=== PATIENT | female | born 1985 | race Caucasian/White ===

== ENCOUNTER 2021-08-20 16:18 | Emergency (ER) | payer SELFPAY ==
--- NOTE | 2021-08-20 16:22 | XRR_ITS ---
PROCEDURE INFORMATION: Exam: XR Right Ankle Exam date and time: 08/20/2021 4:22 PM Age: 36 years old Clinical indication: Injury or trauma; Fall; Blunt trauma; Right; Injury details: History--pt fell 6 days ago pain RT ankle; Additional info: Trauma/pain TECHNIQUE: Imaging protocol: XR Right ankle. Views: 3 or more views. COMPARISON: No relevant prior studies available. FINDINGS: Bones/joints: Two small avulsion fracture fragments along the tip of the medial malleolus. Mildly displaced oblique fracture in the distal diaphysis of the right fibula. The ankle mortise appears intact. Soft tissues: Lateral soft tissue swelling. Obesity. XR/XR ankle RT min 3V* [id number] IMPRESSION: 1. Springer B bimalleolar ankle fracture.
--- NOTE | 2021-08-20 16:38 | XRR_ITS ---
PROCEDURE INFORMATION: Exam: XR Right Foot Exam date and time: 08/20/2021 4:38 PM Age: 36 years old Clinical indication: Injury or trauma; Fall; Blunt trauma; Right; Injury details: History--pt fell 6 days ago pain RT ankle, foot; Additional info: Trauma/pain TECHNIQUE: Imaging protocol: XR Right foot. Views: 3 or more views. COMPARISON: CR XR ankle RT min 3V* [id number] 08/20/2021 4:34 PM FINDINGS: Bones/joints: Well corticated bone densities along the lateral aspect of the medial cuneiform. Mild widening between the bases of the 1st and 2nd metatarsals. Degenerative changes of the tarsometatarsal joints. The other bones appear intact and in normal alignment. Suboptimal positioning with overlapping of the proximal metatarsals. Soft tissues: Normal. XR/XR foot RT min 3V* [id number] IMPRESSION: 1. Bone densities along the medial cuneiform with slight widening between the bases of the 1st and 2nd metatarsals. This may be chronic and related to prior trauma. An acute Lisfranc injury cannot be entirely excluded. 2. Suboptimal positioning makes evaluation of the proximal metatarsals difficult. Further evaluation with CT imaging is suggested.
--- NOTE | 2021-08-20 16:38 | W.ED.LOWEXIN ---
HPI - Extremity Injury (Lower) General: Chief Complaint: Extremity Injury, Lower Stated Complaint: FALL, RIGHT ANKLE INJURY Time Seen by Provider: 08/20/21 16:38 Source: patient Mode of arrival: wheelchair Limitations: no limitations History of Present Illness: Patient is a 36-year-old female presents to ED today with a complaint of right foot and ankle injury that she sustained 6 days ago after she was twisting it when she was taking the trash out. Patient believes she slipped on ice. She has no other injuries or complaints at this time. Patient states she has been hobbling on the extremity since injury thinking it would improve but it has unfortunately continued to worsen in discomfort. complaint: ankle injury and foot injury Place: home Severity: moderate Relieving factors: immobilization Exacerbating factors: weight bearing, movement and palpation Context: other (twisted) Associated symptoms: Reports no associated symptoms Other symptoms: none Review of Systems Musc: Reports: extremity pain (R foot) and joint pain (R ankle) [facility] ED PFSH: Social History Smoking and tobacco status: former smoker Physical Exam Const: COMMON NORMALS: no acute distress, patient oriented x3, no limitations and alert NUTRITIONAL APPEARANCE: obese morbidly obese ORIENTATION/CONSCIOUSNESS: Yes awake, Yes oriented to person, Yes oriented to place and Yes oriented to time Extremity: COMMON NORMALS: capillary refill normal GENERAL: Yes normal exam except as noted RIGHT LOWER EXTREMITY: Yes foot & digits and Yes foot & digits OTHER: pt has pain throughout ankle joint and dorsal foot; DP/PT pulses normal with normal cap refill and sensation; no bony deformity noted; swelling difficulty to appreciate secondary to morbid obesity Neuro: COMMON NORMALS: patient oriented x3, moves all extremities, no focal motor deficits and no sensory deficits noted SENSORIUM/ORIENTATION: Yes alert, Yes oriented to person, Yes oriented to place and Yes oriented to time Skin: COMMON NORMALS: no rashes or lesions noted GENERAL SKIN EXAM: no rashes or lesions noted TRAUMA: no lacerations or abrasions Course Vital Signs: Vital signs: Vital Signs Temperature 97.6 F 08/20/21 16:56 Pulse Rate 89 08/20/21 17:01 Respiratory Rate 18 08/20/21 17:01 Blood Pressure 136/86 08/20/21 17:01 Pulse Oximetry 98 08/20/21 17:01 MDM - Extremity Injury (Lower) Medical Decision Making Will splint with posterior leg/stir up, crutches, NWB instructions, ice/elevation and have patient follow up with orthopedics. Lab Data Radiology Impressions Ankle X-Ray 08/20/21 16:22 IMPRESSION: 1. Springer B bimalleolar ankle fracture. Foot X-Ray 08/20/21 16:38 IMPRESSION: 1. Bone densities along the medial cuneiform with slight widening between the bases of the 1st and 2nd metatarsals. This may be chronic and related to prior trauma. An acute Lisfranc injury cannot be entirely excluded. 2. Suboptimal positioning makes evaluation of the proximal metatarsals difficult. Further evaluation with CT imaging is suggested. Imaging Data XR R foot/ankle: My impression: appears to have a non-displaced oblique fx of distal fibula, small avulsion/fragment off her medial malleolus, and a small jayla that could represent avulsion fracture from her talus; no dislocation Discharge Plan Discharge Patient Disposition: Home Clinical Impression: Fracture of distal end of fibula Qualifiers: Encounter type: initial encounter Fracture type: closed Fracture morphology: unspecified fracture morphology Laterality: right Qualified Code(s): S82.831A - Other fracture of upper and lower end of right fibula, initial encounter for closed fracture Closed fracture of medial malleolus Qualifiers: Encounter type: initial encounter Fracture alignment: nondisplaced Laterality: right Qualified Code(s): S82.54XA - Nondisplaced fracture of medial malleolus of right tibia, initial encounter for closed fracture Condition: Stable Prescriptions: New hydrocodone-acetaminophen 5-325 mg tablet 1 tab PO Q6H PRN (Reason: pain) Qty: 15 0RF No Action famciclovir 500 mg tablet 500 mg PO Q8H 10 Days Qty: 30 0RF Discharge Orders: Discharge ED (Routine); Ordered 08/20/21 Ordered By: Meche Hays Patient Instructions: Opioid Safety Activity Restrictions/Additional Instructions: [email or web address] is committed to fighting the nationwide opiate epidemic. We are providing ALL patients with information regarding opiate safety. If you received opiate pain medication during your stay or if you received a prescription for opiate pain medication-please review this handout. If not, you may disregard. Thank you. As discussed case management should contact you shortly to set you up with your follow-up orthopedic appointment. As we discussed nonweightbearing until told otherwise by orthopedics. You may also elevate and ice the extremity to help with swelling. Coding Level of Care Code ED Technical Support Representative for Chg Fwd Exam Expanded Problem Focused
[2021-08-20 16:56] VITALS: BP 139/88; PULSE 89; RESP 18; TEMP 36.4; O2SAT 98; BMI 62.1
[2021-08-20 17:01] VITALS: BP 136/86; PULSE 89; RESP 18; O2SAT 98
--- NOTE | 2021-08-21 09:28 | DCPLANNER ---
Addendum entered by Barbar Jones 08/22/21 14:58: Patient had a follow up appointment scheduled with ortho - patient did attend appointment. Original Note: sales engineering manager had message to schedule a follow up appointment for patient with ortho. sales engineering manager called the ortho clinic, spoke with Miladis, gave clinic patients information. sales engineering manager was told that patients information would be printed and reviewed. Clinic will call patient with appointment information.
== END 2021-08-20 17:37 | disposition home or self-care (01) ==
PROVIDERS: Emergency Provider Physician Assistant
DX: S82.831A Other fracture of upper and lower end of right fibula, initial encounter for closed fracture (principal); S82.54XA Nondisplaced fracture of medial malleolus of right tibia, initial encounter for closed fracture; Z87.891 Personal history of nicotine dependence; X50.1XXA Overexertion from prolonged static or awkward postures, initial encounter
CPT/HCPCS: 29515; 73610; 73630; 99283; E0114

== ENCOUNTER → 2021-08-25 14:32 | Outpatient (BNVA) | payer SELFPAY | PROVIDERS: Visit Provider Podiatrist Foot & Ankle Surgery | DX: Z01.818 Encounter for other preprocedural examination (principal); Z20.822 Contact with and (suspected) exposure to COVID-19 | CPT/HCPCS: 87635 ==

== ENCOUNTER 2021-08-28 05:52 | Day surgery (SDC) | payer MEDICAID, SELFPAY ==
[2021-08-27 10:34] VITALS: BMI 62.1
[2021-08-28] VITALS (8 sets, daily range): BP systolic 112–153; BP diastolic 76–97; PULSE 85–102; RESP 13–18; TEMP 36.2–36.6; O2SAT 95–100
--- NOTE | 2021-08-28 | SCC_ITS ---
Procedure done: Open reduction internal fixation right bimalleolar ankle fracture Open reduction internal fixation right tarsometatarsal joint CPT codes 16031 and 49918 39 seconds of fluoroscopic guidance, for a cumulative dose of 0.8 mGy, was provided to Dr. Álvarez by the radiology department. C-arm images of the RIGTH ankle were saved for the patient's permanent record. [facility]
[2021-08-28 06:13] LABS: OR HCG Qualitative Urine Negative (Negative)
[2021-08-28] MEDS: sodium chloride 0.9% 1,000 ML 30 ML IV (06:25)
[2021-08-28] MEDS: scopolamine 1.5 Patch 1 PATCH TRANSDERMA (06:44)
[2021-08-28] MEDS: fentaNYL 50 mcg/mL INJ 2mL IVP (06:49)
--- NOTE | 2021-08-28 06:49 | ANES.PREANE2 ---
Pre-Anesthetic Assessment Height/Weight: Height 1.68 m Weight 174.633 kg Preop Diagnosis: Right bimalleolar ankle fracture and right Lisfranc fracture Operation Date: 08/28/21 07:00 Proposed Procedures p ORIF Bimalleolar Ankle [id number]/S92.243(Right) - Antonio Álvarez DPM s ORIF tarsometatarsal fracture(Right) - Antonio Álvarez DPM Was Beta Haylee taken within 24 hours: N/A Was Clonidine taken within 24 hours: N/A Last intake: Intake Last Liquid Date 08/27/21 Last Liquid Time 23:30 Last Solid Date 08/27/21 Last Solid Time 23:30 Social No alcohol and No tobacco Exam alert, oriented x 3, clear to auscultation bilaterally and regular rate & rhythm Airway Submandibular: within normal limits Cervical ROM: within normal limits Mallampati: Class I Dentition: full History/ROS No significant history except as noted and No significant complaints Pulmonary None reported Unable to go up stairs d/t pain CV/HEM None reported None reported Hepatic None reported GI None reported Metabolic None reported Musc/skel None reported Anesthetic Plan ASA status: 3 (36 year old with super morbid obesity) Anesthesia: Anesthesia Evaluation, Eval. for regional block, General and Regional (specify below) (Popliteal block for post op pain control requested by shorty) Other: We discussed risk and benefits of general anesthesia including PONV, sore throat (sometimes severe), corneal abrasion, positioning and peripheral nerve injuries, life threatening allergic reaction, post operative ICU admission requiring prolonged intubation, stroke, heart attack, , and rare incidences of recall. Patient consents to proceed with general anesthesia. We discussed risk and benefits of nerve block for post op pain control including management of pain and titration of pain medications as signs/symptoms of nerve block wearing off begin to appear and/or prior bed. We discussed risk of failed nerve block, vascular injury or other vital structure injury, abscess/infection, LAST, nerve injury?. Plan popliteal block for post op pain control, general at patient's request Risk of > 500 ml blood loss (7ml/kg in children): No Medications/Allergies Home Medications Medication Instructions Recorded Confirmed Last Taken Type aspirin 81 mg chewable tablet 81 mg PO DAILY 60 Days #60 tab 08/28/21 Unknown Rx oxycodone-acetaminophen 10 mg-325 1 tab PO Q6H PRN 7 Days #28 tab 08/28/21 Unknown Rx mg tablet (Percocet) Allergies Allergy/AdvReac Type Severity Reaction Status Date / Time Iodinated Contrast Media Allergy Mild Rash Verified 08/28/21 06:20 shellfish derived Allergy Mild Rash Verified 08/28/21 06:20 PFSH Anesthesia Social History Smoking and tobacco status: former smoker Female Reproductive History Date of last menstrual period: 08/27/21 Data Anesthesia Cardiac Studies: No Data to Display
--- NOTE | 2021-08-28 07:00 | ANES.PROC ---
Anesthesia Procedures Procedure/Date: 08/28/21 Nerve Block ^: Nerve Block 1: Main Anesthesia: general anesthesia Time Out Performed: Yes Consent: requested by attending/covering physician, from patient, risks and benefits reviewed and patient agrees to proceed Nerve block location: popliteal (R) Anesthesia monitors applied: pulse oximetry, EKG, BP cuff and oxygen Anesthetic Used: ropivicaine 0.5% (30) and with decadron (4 mg) Ultrasound used to: recognize landmarks Interscalene/Femoral BLK: 4 stimuplex 21 g needle used for position and inplane approach, visualize local anesthetic spread and no vascular puncture identified Injection: neg aspiration of heme and paresthesia +/- Patient Tolerated Procedure: well Complications: pain with procedure (local Pain during entry and advancement of needle, no pain with injections)
--- NOTE | 2021-08-28 07:05 | W.PM.OPSUD ---
Surgery/Procedure H&P Update DATE OF PROCEDURE: August 28, 2021 DATE H&P PERFORMED: 08/22/21 CHANGES TO PREVIOUS DOCUMENTATION: None PREOP DIAGNOSIS: Right bimalleolar ankle fracture and right Lisfranc fracture PLANNED PROCEDURE: Operation Date: 08/28/21 07:00 Proposed Procedures p ORIF Bimalleolar Ankle [id number]/S92.243(Right) - Antonio Álvarez DPM s ORIF tarsometatarsal fracture(Right) - Antonio Álvarez DPM
[2021-08-28] MEDS: ceFAZolin 3,000 MG in sodium chloride 0.9% (100 ml) 100 ML 200 MG IV (07:07)
[2021-08-28] MEDS: midazolam 1 mg/mL INJ 2 mL 2 MG IVP (07:09)
--- NOTE | 2021-08-28 08:33 | XR_ITS ---
WS: [id number] RIGHT ANKLE: 3 VIEW(S) TECHNIQUE: AP, oblique(s) and lateral. HISTORY: Postop ORIF COMPARISON: 08/20/2019 Short plate and screws stabilizing the distal fibular fracture. Fracture in good position alignment. Overlying row of john noted. Ankle mortise is intact. Well-corticated osseous densities distal to the medial malleolus. Additional screw has been placed in the midfoot. Screw may extend across the Lisfranc joint. Addition al imaging is necessary to clarify positioning. No soft tissue abnormality. XR/XR ankle RT min 3V* [id number] IMPRESSION: 1. Status post ORIF distal fibular fracture now in good position alignment. 2. No widening of the ankle mortise.
--- NOTE | 2021-08-28 08:35 | PM.OP ---
Operative Report Date of procedure: August 28, 2021 Pre-op diagnosis: Right bimalleolar ankle fracture equivalent and right Lisfranc fracture, right medial cuneiform fracture. Post-op diagnosis: Same Post-op findings: Improved in anatomic alignment of the right ankle distal fibula, ankle mortise is congruent and reduced the first interspace diastases to the right foot. Procedure done: Open reduction internal fixation right bimalleolar ankle fracture Open reduction internal fixation right tarsometatarsal joint CPT codes 35169 and 73533 Implants: Jenkins one third tubular plate 7 hole and 3.5 mm locking screws, Jenkins 2.7 mm interfrag screw and Peng headed 4.0 mm partially-threaded cannulated screw with washer. 2-0 Vicryl, 3-0 Vicryl, skin john and 4-0 nylon. Specimens removed/disposition: None Pathology: None Surgeon: Antonio Álvarez D.P.M. Cell Tuber Machine: Niko Meléndez Estimated blood loss: 5 58 IV fluids: None Urine output: 0 Complications: None Findings: Proved anatomic alignment of right ankle and right Lisfranc tarsometatarsal joint. Brief History: Sustained a right bimalleolar ankle equivalent and right Lisfranc fracture dislocation slipped on ice check in the mail date of injury approximately 08/14/2021. Recommended ORIF. Risks include pain, bleeding, numbness, infection, hardware failure, hardware rotation, delayed union, malunion, nonunion, chronic numbness, chronic swelling, instability at the tarsometatarsal joint need for potential arthrodesis of the right tarsometatarsal joints down the road. Highly likelihood of posttraumatic arthritis of the right foot and right ankle. Also risk for deep vein thrombosis, heart attack, stroke and . Patient n.p.o. since midnight. Covid screening negative. Informed consent signed I initialed her right foot and ankle. No guarantees written, expressed or implied. Patient wishes to proceed. Her life partner is also present. Procedure: Under mild sedation the patient was brought to the operating room and remained on the gurney in supine position. A timeout was performed. Anesthesia was then administered by the anesthesia service. Popliteal block performed preoperatively per anesthesia greatly appreciated. Well-padded pneumatic tourniquet applied to the right high calf. Right lower extremity was then scrubbed, prepped and draped utilizing normal aseptic technique. Right foot and ankle were exanguinated with an Esmarch bandage and the tourniquet inflated to 250 mmHg. Attention was directed to the right lateral ankle where the lateral malleolus was palpated directly over the lateral malleolus a linear longitudinal incision was made with #15 blade through skin with blunt and sharp dissection carried down through subcutaneous tissue to the layer of periosteum with care taken to retract and preserve neurovascular and tendinous structures. All bleeders were ligated and cauterized as necessary. Periosteal incision was made, fracture was identified, curettaged and flushed with saline solution followed by anatomic reduction and temporarily stabilized utilizing [id number] reduction forceps, interfrag screw 2.7 mm utilizing standard AO technique with excellent bony apposition and compression noted followed by one third tubular plate 7 hole 3.5 mm locking screws in various length not violating the ankle mortise this was confirmed with intraoperative fluoroscopy with excellent bony apposition and compression and ankle mortise congruent. The incision was flushed with copious amounts of sterile skin solution. Syndesmosis was tested utilizing cotton hook test and noted to be intact. Skin incision was then closed in a layered fashion with 2-0 Vicryl, 3-0 Vicryl and skin john. Attention was then directed to the dorsal forefoot where all 3 planes were visualized and planned out for the trajectory of a homerun screw through the Lisfranc injury there is a fracture at the medial cuneiform distal lateral aspect and diastases at the first intermetatarsal space. Utilize things standard AO technique a Peng headed 4.0 mm screw which was cannulated and partially-threaded was run in a homerun fashion with excellent bony apposition and compression noted in anatomic reduction of the diastases and fixation of the fracture fragment. This was excellent in all 3 planes. Incision was then flushed with sterile saline solution and closed with 4-0 nylon. Incisions were then dressed with Adaptic, sterile 4 x 4, Kerlix, Jason wrap and a cam boot was applied. Tourniquet was deflated and a prompt hyperemic response was noted to the distal digits of the right foot. Patient tolerated the procedure and anesthesia well and was transferred to the PACU with vital signs stable and vascular status intact. Following a period of postoperative monitoring she will be discharged home was given at home instructions and follow-up. She was prescribed Percocet 10/325 to be taken judiciously as needed for pain every 6 hours. She is to remain strict nonweightbearing on the right foot at all times and elevate her right foot while resting. She may accomplish nonweightbearing status utilizing the means of her choice whether wheelchair or crutches. I advised an 81 mg aspirin once daily beginning tomorrow August 29, 2021 to potentially help reduce the risk of deep vein thrombosis. Patient will follow up in podiatry clinic Wednesday next week September 05, 2021 for her first dressing change in postoperative visit. She was provided my cell phone number and will contact with any postoperative questions or concerns.
[2021-08-28] MEDS: oxyCODONE-APAP 10-325 mg Tablet 1 TAB PO (09:15)
--- NOTE | 2021-08-28 10:00 | ANE.PACU2 ---
Inpatient post-anesthesia follow up: Airway intact: Yes Vital signs: Temperature 97.9 F Pulse Rate 85 Respiratory Rate 16 Blood Pressure 113/81 Pulse Oximetry 95 Oxygen Delivery Me thod Room Air Oxygen Flow Rate 10 Fraction of Inspir ed Oxygen Hydration adequate: Yes Nausea and vomiting: No Pain level: 3 Pain level: Medial foot pain Mental status: Baseline
== END 2021-08-28 10:05 | disposition home or self-care (01) ==
PROVIDERS: Anesthesiology; Visit Provider Podiatrist Foot & Ankle Surgery
PROC: (CPT 27814; principal; 2021-08-28 07:00)
PROC: (CPT 28485; 2021-08-28 07:00)
DX: S82.841A Displaced bimalleolar fracture of right lower leg, initial encounter for closed fracture (principal); S92.241A Displaced fracture of medial cuneiform of right foot, initial encounter for closed fracture; X58.XXXA Exposure to other specified factors, initial encounter; E66.01 Morbid (severe) obesity due to excess calories; Z68.44 Body mass index [BMI] 60.0-69.9, adult; Z79.82 Long term (current) use of aspirin; Z87.891 Personal history of nicotine dependence
CPT/HCPCS: 27814; 28615; 73610; 76000; 81025; 84703; 96367; 96374; C1713; J0330; J0690; J1100; J2250; J2405; J2704; J2795; J3010; J3490; J7030

== ENCOUNTER → 2021-09-02 15:44 | Outpatient (BNVA) | payer SELFPAY | PROVIDERS: Visit Provider Podiatrist Foot & Ankle Surgery | DX: Z98.890 Other specified postprocedural states (principal) | CPT/HCPCS: 73610; 73630 ==

== ENCOUNTER → 2021-09-08 13:09 | Outpatient (BNVA) | payer MEDICAID, SELFPAY | PROVIDERS: Visit Provider Podiatrist Foot & Ankle Surgery | DX: Z48.89 Encounter for other specified surgical aftercare (principal); Z98.890 Other specified postprocedural states; R60.0 Localized edema | CPT/HCPCS: 73610; 73630 ==

== ENCOUNTER → 2021-09-19 13:16 | Outpatient (BNVA) | payer MEDICAID, SELFPAY | PROVIDERS: Visit Provider Podiatrist Foot & Ankle Surgery | DX: S82.841D Displaced bimalleolar fracture of right lower leg, subsequent encounter for closed fracture with routine healing (principal); S92.241D Displaced fracture of medial cuneiform of right foot, subsequent encounter for fracture with routine healing; X58.XXXD Exposure to other specified factors, subsequent encounter; Z98.890 Other specified postprocedural states | CPT/HCPCS: 73610; 73630 ==

== ENCOUNTER → 2021-10-09 14:42 | Outpatient (BNVA) | payer MEDICAID, SELFPAY | PROVIDERS: Visit Provider Podiatrist Foot & Ankle Surgery | DX: Z48.89 Encounter for other specified surgical aftercare (principal); Z98.890 Other specified postprocedural states | CPT/HCPCS: 73610; 73630 ==

== ENCOUNTER 2022-02-13 18:38 | Emergency (ER) | payer MEDICAID, SELFPAY ==
[2022-02-13 19:12] VITALS: BP 128/86; PULSE 98; RESP 18; TEMP 36.7; O2SAT 98; BMI 63.2
[2022-02-13 20:38] LABS: Basophils # 0.1 10^3/uL (0.0-0.1); Basophils % 0.7 %; Eosinophils # 0.3 10^3/uL (0.0-0.8); Eosinophils % 3.9 %; Hematocrit 49.4 % (37.0-47.0); Lymphocytes # 3.4 10^3/uL (0.8-4.8); Lymphocytes % 38.6 %; Mean Corpuscular HGB Conc 30.4 g/dL (30.0-36.0); Mean Corpuscular Hemoglobin 29.3 pg (28.0-34.0); Mean Corpuscular Volume 96.5 fl (81-99); Mean Platelet Volume 11.3 fL (7.4-10.4); Monocytes # 0.4 10^3/uL (0.2-0.9); Monocytes % 4.9 %; Neutrophils # 4.49 10^3/uL (1.8-7.7); Neutrophils % 51.6 %; Nucleated Red Blood Cells % 0 %; Platelet Count 337 10^3/cmm (130-400); Red Blood Count 5.12 10^6/uL (4.1-5.3); Red Cell Distribution Width 12.6 % (12.1-15.1); White Blood Count 8.7 10^3/uL (4.0-10.0)
[2022-02-13 20:50] LABS: HCG, Serum Qual Negative (Negative)
[2022-02-13 21:04] LABS: Alanine Aminotransferase 23 U/L (0-33); Albumin Level 4.1 g/dL (3.5-5.2); Alkaline Phosphatase 93 IU/L (35-105); Anion Gap 16.8 (5-19); Aspartate Amino Transferase 19 U/L (0-32); Blood Urea Nitrogen 9 mg/dL (6-20); Calcium 9.2 mg/dL (8.5-10.5); Carbon Dioxide 24 mmol/L (22-29); Chloride 103 mmol/L (98-107); Globulin 3.1 g/dL (1.3-4.6); Glomerular Filtration Rate 81.6 mL/min (90-130); Glucose 90 mg/dL (65-115); Lipase 31 U/L (13-60); Osmolality Calculated 288 mOsm/kg (285-295); Potassium 3.8 mmol/L (3.5-5.1); Sodium 140 mmol/L (136-145); Total Bilirubin 0.4 mg/dL (0.15-1.2); Total Protein 7.2 g/dL (6.6-8.7)
--- NOTE | 2022-02-13 21:40 | CTR_ITS ---
PROCEDURE INFORMATION: Exam: CT Abdomen And Pelvis Without Contrast Exam date and time: 02/13/2022 9:48 PM Age: 36 years old Clinical indication: Abdominal pain; Generalized; Prior surgery; Surgery date: 6+ months; Surgery type: Gastric sleeve; Patient HX: C/O abd pain, n/v/d TECHNIQUE: Imaging protocol: Computed tomography of the abdomen and pelvis without contrast. Radiation optimization: All CT scans at this facility use at least one of these dose optimization techniques: automated exposure control; mA and/or kV adjustment per patient size (includes targeted exams where dose is matched to clinical indication); or iterative reconstruction. COMPARISON: No relevant prior studies available. RADIATION DOSE METRICS: Total DLP (mGy-cm): 1995.33 FINDINGS: Lungs: The lung bases are clear. Liver: Unremarkable. Gallbladder and bile ducts: The gallbladder appears mildly distended, transverse diameter up to 4.2 cm. Suspect a faintly calcified 18 mm gallstone in the gallbladder neck. Ultrasound would be more specific/sensitive for detecting gallstones, if clinically needed. No definite pericholecystic fluid or inflammatory changes at this time. No biliary tree dilation. Pancreas: Unremarkable. Spleen: Unremarkable. Adrenal glands: Unremarkable. Kidneys and ureters: No hydronephrosis of either kidney. No visible renal or ureteral calculus. No perinephric fluid. Stomach and bowel: Evidence for prior gastric sleeve surgery. No significant bowel distention. There are no CT findings to strongly suggest diverticulitis or colitis. Appendix: The appendix is visualized and appears normal. Intraperitoneal space: No free intraperitoneal air, or ascites. Vasculature: No evidence for abdominal aortic aneurysm. Lymph nodes: No retroperitoneal adenopathy. Urinary bladder: Unremarkable as visualized. Reproductive: No definite abnormal ovarian/adnexal cyst or mass by CT. Bones/joints: No significant acute finding. Soft tissues: No significant acute finding. CT/CT abdomen pelvis wo con [id number] IMPRESSION: 1. Probable 18 mm faintly calcified gallstone in the gallbladder neck. Mild gallbladder distention. See additional details above. 2. No free air or bowel distention. No evidence for bowel obstruction. 3. Normal appendix. 4. No hydronephrosis of either kidney. No visible renal or ureteral calculus. 5. Other findings discussed above.
--- NOTE | 2022-02-13 22:09 | W.ED.GENADLT ---
HPI - General Adult General: Chief complaint: Abdominal Pain Stated complaint: ABD Pain Time Seen by Provider: 02/13/22 21:16 History of Present Illness: Patient is a 36-year-old female with history of gastric sleeve, obesity, and renal colic presenting to the emergency room with 2 days of worsening right upper quadrant David pain radiating to the left upper quadrant. Patient tells me that she thinks that she has biliary colic. Patient says that since 2 days ago, patient has had intermittent constant upper abdominal pain rating from right to left. Patient denies any nausea/vomiting fever/chills, chest pain, shortness of breath, palpitation lightheadedness. Patient denies any additional swelling in the legs, diarrhea melena or hematochezia. Patient has no complaints. Patient has a history of renal colic but reports that symptoms are not consistent. Patient denies any hematuria. Patient denies any new vaginal discharge. No cough, runny nose, sore throat fever or chill. Onset: 2 days ago Duration:2 days Location:home Severity:moderate Associated symptoms: Deny chest pain, dyspnea, nausea, rash, palpitations or vomiting Review of Systems Const: Denies: fever(s) or chills Eyes: Denies: change in vision ENMT: Denies: mouth pain Card: Denies: chest pain or palpitations Resp: Denies: dyspnea or non-productive cough GI: Reports: abdominal pain; Denies: nausea, vomiting or diarrhea : Denies: dysuria Musc: Denies: extremity pain Skin/Breast: Denies: rash or new lesions Neuro: Denies: weakness in extremities Psych: Reports: other (Normal mood) Jeancarlos/Lymph: Denies: easy bruising PFSH ED PFSH: Medical History (Updated 02/13/22 @ 23:41 by Vini Anaya MD) Morbid obesity Renal colic Surgical History (Updated 02/13/22 @ 22:13 by Vini Anaya MD) H/O gastric sleeve Social History Smoking and tobacco status: never smoked Female Reproductive History: Date of last menstrual period: 01/20/22 Physical Exam Const: COMMON NORMALS: alert HENMT: COMMON NORMALS: atraumatic HEAD & SCALP: atraumatic MOUTH: moist mucous membranes not abnormal Eye: COMMON NORMALS: EOMs intact bilaterally and conjunctivae normal CONJUNCTIVA: Yes conjunctivae normal Neck/C-Spine: COMMON NORMALS: full ROM and supple Resp: COMMON NORMALS: normal respiratory effort and clear to auscultation bilaterally AUSCULTATION: clear to auscultation bilaterally Cardio: COMMON NORMALS: regular rate RATE: regular rate GI: COMMON NORMALS: Soft to palpation PALPATION: Yes Soft to palpation OTHER: +mild mid-epigastric focal TTP. NO guarding rebound, guarding, rigidity. No CVA tenderness to percussion. Neg Castillo/Neg McBurney's point tenderness, no suprabupic tenderness to palpation. Extremity: COMMON NORMALS: full ROM Neuro: SENSORIUM/ORIENTATION: Yes alert MOTOR EXAM: No Abnormal motor strength present and Other motor observations present (no focal motor deficits) Psych: COMMON NORMALS: speech normal SPEECH: Yes normal speech MOOD & AFFECT: Yes euthymic mood Course Vital Signs: Vital signs: Vital Signs Temperature 98.0 F 02/13/22 19:12 Pulse Rate 100 02/13/22 23:16 Respiratory Rate 22 H 02/13/22 23:41 Blood Pressure 136/81 02/13/22 23:16 Pulse Oximetry 100 02/13/22 23:16 MDM - General Adult Medical Decision Making 36-year-old female history renal colic, gastric sleeve, morbid obesity presenting to emergency room with concerns of abdominal pain x2 days. On exam, patient is afebrile hemodynamic stable, patient has mild midepigastric tenderness palpation. No flank tenderness to palpation no for CVA tenderness. No guarding no rebound tenderness. White count of 8.5. Creatinine was normal. UA is positive for UTI. Patient received ceftriaxone in the ER. CT abdomen pelvis showed gallstone in the gallbladder neck. There is no signs of formation of the gallbladder on CT scan. Patient is afebrile with no white count and pain improving, suspect this is biliary colic. AST/ALT and T bili not elevated today. Do not suspect any other pathology include choledocholithiasis worsening cholangitis. I discussed case with Dr. Urbina who will see patient in clinic next week. I have given patient follow up with our returned case inspector to be seen by Dr. Urbina for outpatient evaluation of bilary colic. Patient aware of a call from our returned case inspector to schedule for appointment(s) and verbalizes understanding of the importance of following up. Rx cefdinir for UTI/early pyelonephritis and probiotics PRN, tylenol #3 PRN pain Disposition: Discharge. Patient counseled regarding diagnostic impression, treatment plan. Patient given ED strict return precautions to return for continuation, worsening, or development of new symptoms. Instructed to f/u w/ Dr. Urbina regarding symptoms today. Patient verbalized understanding. Patient is given strict return precaution for any signs of biliary infection, fever/chills, nausea/chronic and worsening pain, or any new concerning complaints. Lab Data : 02/13/22 20:30 02/13/22 20:30 Radiology Impressions Abdomen/Pelvis CT 02/13/22 21:40 IMPRESSION: 1. Probable 18 mm faintly calcified gallstone in the gallbladder neck. Mild gallbladder distention. See additional details above. 2. No free air or bowel distention. No evidence for bowel obstruction. 3. Normal appendix. 4. No hydronephrosis of either kidney. No visible renal or ureteral calculus. 5. Other findings discussed above. Laboratory Results WBC 8.7 10^3/uL (4.0-10.0) 02/13/22 20:30 RBC 5.12 10^6/uL (4.1-5.3) 02/13/22 20:30 Hgb 15.0 g/dL (11.5-15.3) 02/13/22 20:30 Hct 49.4 % (37.0-47.0) H 02/13/22 20:30 MCV 96.5 fl (81-99) 02/13/22 20: MCH 29.3 pg (28.0-34.0) 02/13/22 20: MCHC 30.4 g/dL (30.0-36.0) 02/13/22 20: RDW 12.6 % (12.1-15.1) 02/13/22 20: Plt Count 337 10^3/cmm (130-400) 02/13/22 20: MPV 11.3 fL (7.4-10.4) H 02/13/22 20:30 Neut % (Auto) 51.6 % 02/13/22 20: Lymph % (Auto) 38.6 % 02/13/22 20:30 [place] % (Auto) 4.9 % 02/13/22 20:30 Eos % (Auto) 3.9 % 02/13/22 20:30 Baso % (Auto) 0.7 % 02/13/22 20:30 Neut # (Auto) 4.49 10^3/uL (1.8-7.7) 02/13/22 20:30 Lymph # (Auto) 3.4 10^3/uL (0.8-4.8) 02/13/22 20:30 [place] # (Auto) 0.4 10^3/uL (0.2-0.9) 02/13/22 20:30 Eos # (Auto) 0.3 10^3/uL (0.0-0.8) 02/13/22 20: Baso # (Auto) 0.1 10^3/uL (0.0-0.1) 02/13/22 20:30 Nucleated RBC % (auto) 0 % 02/13/22 20: Nucleated RBCs # 0.0 /100WBC 02/13/22 20:30 Sodium 140 mmol/L (136-145) 02/13/22 20: Potassium 3.8 mmol/L (3.5-5.1) 02/13/22 20: Chloride 103 mmol/L (98-107) 02/13/22 20: Carbon Dioxide 24 mmol/L (22-29) 02/13/22 20:30 Anion Gap 16.8 (5-19) 02/13/22 20:30 BUN 9 mg/dL (6-20) 02/13/22 20: Creatinine 0.8 mg/dL (0.5-0.9) 02/13/22 20:30 GFR Calculation 81.6 mL/min (90-130) L 02/13/22 20: Glucose 90 mg/dL (65-115) 02/13/22 20: Calculated Osmolality 288 mOsm/kg (285-295) 02/13/22 20: Calcium 9.2 mg/dL (8.5-10.5) 02/13/22 20:30 Total Bilirubin 0.4 mg/dL (0.15-1.2) 02/13/22 20: AST 19 U/L (0-32) 02/13/22 20:30 ALT 23 U/L (0-33) 02/13/22 20:30 Alkaline Phosphatase 93 IU/L (35-105) 02/13/22 20:30 Troponin T Baseline 6 ng/L (0-10) 02/13/22 20:30 Total Protein 7.2 g/dL (6.6-8.7) 02/13/22 20:30 Albumin 4.1 g/dL (3.5-5.2) 02/13/22 20:30 Globulin 3.1 g/dL (1.3-4.6) 02/13/22 20:30 Lipase 31 U/L (13-60) 02/13/22 20:30 HCG, Qual Negative (Negative) 02/13/22 20:30 Urine Color Yellow (Yellow) 02/13/22 22:00 Urine Appearance Hazy (CLEAR) A 02/13/22 22:00 Urine pH 5 (5-7) 02/13/22 22:00 Ur Specific [place] 1.025 (1.005-1.030) 02/13/22 22:00 Urine Protein Neg (Negative) 02/13/22 22:00 Urine Glucose (UA) Norm (Normal) 02/13/22 22:00 Urine Ketones Negative (Negative) 02/13/22 22:00 Urine Blood Trace (Negative) H 02/13/22 22:00 Urine Nitrate Positive (Negative) H 02/13/22 22:00 Urine Bilirubin Neg (Negative) 02/13/22 22:00 Urine Urobilinogen Neg mg/dL (Negative) 02/13/22 22:00 Ur Leukocyte Esterase Negative (Negative) 02/13/22 22:00 Urine RBC 0-4 /hpf (0-2) H 02/13/22 22:00 Urine WBC 10-15 /hpf (0-5) H 02/13/22 22:00 Ur Squamous Epith Cells 15-25 /hpf (0-5) H 02/13/22 22:00 Amorphous Sediment Not Reportable 02/13/22 22:00 Urine Bacteria 3+ /hpf (NONE) H 02/13/22 22:00 Urine Mucus 1+ /hpf 02/13/22 22:00 Imaging Data Other Imaging: Radiologist's impression: [address] [place] [address] CT Scan Report Signed Patient: Human,Maddie Unit #: [id number] : 1985 Age/Sex: 36 / F ADM Date: 02/13/22 Loc: ER Room/Bed: Attending Dr: Ordering Provider/Ordering MD: Vini Anaya MD Date of Service: 02/13/22 Procedure(s): CT abdomen pelvis con [id number] Accession Number(s): [id number] Report Number: [id number] PROCEDURE INFORMATION: Exam: CT Abdomen And Pelvis Without Contrast Exam date and time: 02/13/2022 9:48 PM Age: 36 years old Clinical indication: Abdominal pain; Generalized; Prior surgery; Surgery date: 6+ months; Surgery type: Gastric sleeve; Patient HX: C/O abd pain, n/v/d TECHNIQUE: Imaging protocol: Computed tomography of the abdomen and pelvis without contrast. Radiation optimization: All CT scans at this facility use at least one of these dose optimization techniques: automated exposure control; mA and/or kV adjustment per patient size (includes targeted exams where dose is matched to clinical indication); or iterative reconstruction. COMPARISON: No relevant prior studies available. RADIATION DOSE METRICS: Total DLP (mGy-cm): 1996.33 FINDINGS: Lungs: The lung bases are clear. Liver: Unremarkable. Gallbladder and bile ducts: The gallbladder appears mildly distended, transverse diameter up to 4.2 cm. ?Suspect a faintly calcified 18 mm gallstone in the gallbladder neck. Ultrasound would be more specific/sensitive for detecting gallstones, if clinically needed. ?No definite pericholecystic fluid or inflammatory changes at this time. ?No biliary tree dilation. Pancreas: Unremarkable. Spleen: Unremarkable. Adrenal glands: Unremarkable. Kidneys and ureters: No hydronephrosis of either kidney. No visible renal or ureteral calculus. No perinephric fluid. Stomach and bowel: Evidence for prior gastric sleeve surgery. ?No significant bowel distention. ?There are no CT findings to strongly suggest diverticulitis or colitis. Appendix: The appendix is visualized and appears normal. Intraperitoneal space: No free intraperitoneal air, or ascites. Vasculature: No evidence for abdominal aortic aneurysm. Lymph nodes: No retroperitoneal adenopathy. Urinary bladder: Unremarkable as visualized. Reproductive: No definite abnormal ovarian/adnexal cyst or mass by CT. Bones/joints: No significant acute finding. Soft tissues: No significant acute finding. CT/CT abdomen pelvis wo con [id number] IMPRESSION: 1. Probable 18 mm faintly calcified gallstone in the gallbladder neck. Mild gallbladder distention. See additional details above. 2. No free air or bowel distention. No evidence for bowel obstruction. 3. Normal appendix. 4. No hydronephrosis of either kidney. No visible renal or ureteral calculus. 5. Other findings discussed above. ? Dictated By: Dileep Duarte MD Signed By: Dileep Duarte MD Signed Date/Time: 02/13/222329 DD/ 47 Discharge Plan Discharge Patient Disposition: Home Clinical Impression: UTI (urinary tract infection), Abdominal pain, Biliary colic Condition: Stable Prescriptions: New cefdinir 300 mg capsule 300 mg PO BID 10 Days Qty: 20 0RF Florastor 250 mg capsule 250 mg PO DAILY 20 Days Qty: 20 0RF acetaminophen-codeine 300-30 mg tablet 1 tab PO Q8H PRN (Reason: pain) Qty: 9 0RF Discharge Orders: Discharge ED (Routine); Ordered 02/13/22 Ordered By: Vini Anaya Discharge Diet: Advance as tolerated Discharge Activity: Increase activity as tolerated Patient Instructions: Dysuria (ED), Abdominal Pain (ED) Activity Restrictions/Additional Instructions: Please take your antibiotics as instructed. Come back to the emergency room if any fever/chills, nausea/vomiting, worsening pain, or any new concerning complaints. Please take your antibiotics as instructed. Watch out for signs of skin changes/redness, mouth redeness or swelling, nausea/vomiting, diarrhea, blood in the urine or any new or concering complaints. I have given patient follow up with our returned case inspector to be seen by our outpatient general surgery for gallstone. Patient aware of a call from our returned case inspector to schedule for appointment(s) and verbalizes understanding of the importance of following up. 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
[2022-02-13 22:12] LABS: Add Urine Microscopic? YES; Bilirubin Urine Neg (Negative); Blood Urine Trace (Negative); Glucose Urine UA Norm (Normal); Ketones Urine Negative (Negative); Leukocyte Esterase Urine Negative (Negative); Nitrate Urine Positive (Negative); Protein Urine Neg (Negative); Specific Gravity, Urine 1.025 (1.005-1.030); Urine Appearance Hazy (CLEAR); Urine Color Yellow (Yellow); Urobilinogen Urine Neg (Negative); pH Urine 5 (5-7)
--- NOTE | 2022-02-13 22:14 | ECG_ITS ---
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 Measurements Intervals [place] Rate: 90 P: 4 [place]: 120 QRS: 8 QRSD: 83 T: 12 QT: 361 QTc: 443 Interpretive Statements SINUS RHYTHM WITH SINUS ARRHYTHMIA POSSIBLE LEFT ATRIAL ENLARGEMENT [-0.1mV P-WAVE IN V1/V2] Compared to ECG 06/22/2019 15:35:38 No significant changes Electronically Signed On 02-13-2022 23:06:52 CDT by Michael Veronica M.D. [id number]
[2022-02-13 22:16] LABS: RBC Urine 0-4 /hpf (0-2)
[2022-02-13 22:17] LABS: Add Urine Culture? No; Bacteria Urine 3+ /hpf; Mucus Urine 1+ /hpf; Squamous Epithelial Cell Urine 15-25 /hpf (0-5)
[2022-02-13 22:35] LABS: Troponin(5th) Baseline 6 ng/L (0-10)
[2022-02-13] MEDS: cefTRIAXone 1,000 MG in sodium chloride 0.9% (plus) 50 ML 100 MG IV (22:49)
[2022-02-13 23:16] VITALS: BP 136/81; PULSE 100; RESP 20; O2SAT 100
[2022-02-13] MEDS: acetaminophen 500 mg Tablet PO (23:26)
[2022-02-13] MEDS: lidocaine 2% viscous 15 ML, aluminum-mag hydrox-simethicon 30 ML, sucralfate oral liq 1 GM PO (23:27)
[2022-02-13 23:41] VITALS: RESP 22
[2022-02-13] MEDS: morphine 4 mg/mL SDV 1 mL IVP (23:41)
[2022-02-14 00:04] VITALS: BP 136/81; PULSE 90; RESP 18; O2SAT 97
--- NOTE | 2022-02-15 13:48 | DCPLANNER ---
Addendum entered by Barbra Jones 02/18/22 15:08: Patient had a follow up appointment scheduled for 02.17.[address] Urbina at general surgery - patient did attend appointment. Original Note: communications station manager had message to schedule a follow up appointment for patient with general surgery. communications station manager sent patients information to the front office staff at general surgery. Patients information will be printed and reviewed. Clinic will call patient with appointment information.
== END 2022-02-14 00:06 | disposition home or self-care (01) ==
PROVIDERS: Emergency Medicine; Emergency Provider Emergency Medicine
DX: N39.0 Urinary tract infection, site not specified (principal); K80.50 Calculus of bile duct without cholangitis or cholecystitis without obstruction; R10.9 Unspecified abdominal pain
CPT/HCPCS: 36415; 74176; 80053; 81001; 83690; 84484; 84703; 85025; 93005; 96365; 96375; 99285; J0696; J2270

== ENCOUNTER 2022-02-16 11:20 | Emergency (ER) | payer MEDICAID, SELFPAY ==
[2022-02-16 11:38] VITALS: BP 169/93; PULSE 91; RESP 16; TEMP 36.4; O2SAT 98; BMI 63.2
[2022-02-16 14:47] VITALS: O2SAT 98
[2022-02-16 14:57] VITALS: RESP 14; O2SAT 98
[2022-02-16] MEDS: morphine 4 mg/mL SDV 1 mL IVP ×2 (14:57→16:55)
[2022-02-16] MEDS: ondansetron 2 mg/ML SDV 2 mL 4 MG IVP (14:58)
[2022-02-16 15:00] VITALS: BP 131/95
[2022-02-16 15:02] LABS: Basophils % 0.5 %; Eosinophils # 0.2 10^3/uL (0.0-0.8); Eosinophils % 2.2 %; Hematocrit 43.4 % (37.0-47.0); Hemoglobin 14.3 g/dL (11.5-15.3); Lymphocytes # 2.5 10^3/uL (0.8-4.8); Lymphocytes % 31.8 %; Mean Corpuscular HGB Conc 32.9 g/dL (30.0-36.0); Mean Corpuscular Hemoglobin 29.6 pg (28.0-34.0); Mean Corpuscular Volume 89.9 fl (81-99); Mean Platelet Volume 11.3 fL (7.4-10.4); Monocytes # 0.4 10^3/uL (0.2-0.9); Monocytes % 4.9 %; Neutrophils # 4.65 10^3/uL (1.8-7.7); Neutrophils % 60.3 %; Nucleated Red Blood Cells % 0 %; Platelet Count 320 10^3/cmm (130-400); Red Blood Count 4.83 10^6/uL (4.1-5.3); Red Cell Distribution Width 12.5 % (12.1-15.1); White Blood Count 7.7 10^3/uL (4.0-10.0)
--- NOTE | 2022-02-16 15:20 | ED_ITS ---
HPI - Abdominal Pain General: Chief Complaint: Abdominal Pain Stated Complaint: abd pain Time Seen by Provider: 02/16/22 14:40 Source: patient Mode of arrival: ambulatory Limitations: no limitations History of Present Illness: 36-year-old female presents emergency complaining right upper quadrant abdominal pain epigastric pain. She was seen here few days ago and CT there was a single stone in her gallbladder, no abnormal liver function tests bilirubin was normal. She was discharged home and referred to general surgery she has not yet evaluated with them. She was discharged home with treatment for urinary tract infection with cefdinir. She essentially ate her usual diet for the weekend and has continued to have difficulty. MD elicited complaint: abdominal pain Pertinent past history: none Onset (ago): day(s) Pain Consistency: intermittent Location: Epigastric and RUQ Severity: moderate Quality: cramping Radiation: back Exacerbating factors: nothing Relieving factors: nothing Associated Symptoms: Reports anorexia, constipation, GI cramping, nausea and poor appetite; Denies belching, change in bowel habits, change in stool character, chills, coffee ground emesis, diarrhea, dyspepsia, dysuria, excessive flatus, fever(s), heartburn, hematochezia, hematuria, hematemesis, fecal incontinence, loose stools, melena, syncope and vomiting Related Data: Date of Last Menstrual Period: 01/20/22 Review of Systems Const: Denies: fever(s), chills, fatigue or malaise ENMT: Denies: throat pain, ear or mastoid pain, nasal discharge or nasal congestion Card: Denies: chest pain, palpitations, irregular heart rhythm or syncope Resp: Denies: dyspnea, productive cough or non-productive cough GI: Reports: abdominal pain, nausea, constipation and GI cramping; Denies: vomiting, hematemesis, coffee ground emesis, heartburn, diarrhea, belching, excessive flatus, fecal incontinence, change in bowel habits, change in stool character, hematochezia or melena : Denies: flank pain, difficulty voiding, dysuria, urinary frequency, urinary urgency or hematuria Skin/Breast: Denies: rash or pruritus PFSH ED PFSH: Medical History Morbid obesity Renal colic Surgical History H/O gastric sleeve Social History Smoking and tobacco status: never smoked Female Reproductive History: Date of last menstrual period: 01/20/22 Physical Exam Const: GENERAL APPEARANCE: cooperative and comfortable ORIENTATION/CONSCIOUSNESS: Yes awake, Yes oriented to person, Yes oriented to place and Yes oriented to time HENMT: COMMON NORMALS: normocephalic and atraumatic HEAD & SCALP: normocephalic and atraumatic Neck/C-Spine: COMMON NORMALS: no JVD Resp: COMMON NORMALS: normal respiratory effort, No retractions, No use of accessory muscles and clear to auscultation bilaterally AUSCULTATION: clear to auscultation bilaterally Cardio: COMMON NORMALS: no JVD, regular rate, regular rhythm and No murmurs present (Cardio) RATE: regular rate RHYTHM: regular rhythm GI: COMMON NORMALS: No hepatosplenomegaly present AUSCULTATION: Yes norm oactive bowel sounds PALPATION: Yes Tenderness to palpation present (GI) Details: RUQ, No Guarding due to palpation present (GI) and Yes No hepatosplenomegaly present Extremity: COMMON NORMALS: normal to inspection, capillary refill normal, no clubbing, cyanosis or edema, no calf tenderness and no pedal edema Neuro: SENSORIUM/ORIENTATION: Yes oriented to person, Yes oriented to place and Yes oriented to time Skin: COMMON NORMALS: no rashes or lesions noted GENERAL SKIN EXAM: no r ashes or lesions noted Course Vital Signs: Vital signs: Vital Signs Temperature 97.6 F 02/16/22 11:38 Pulse Rate 91 02/16/22 11:38 Respiratory Rate 14 02/16/22 16:55 Blood Pressure 142/80 02/16/22 15:30 Pulse Oximetry 98 02/16/22 16:55 Oxygen Delivery Me thod 02/16/22 11:38 MDM - Abdominal Pain Medical Decision Making Patient is definitely having biliary colic medications given here relieved her symptoms. Reviewed the imaging done today discussed Dr. Ochoa who did not feel there is a high likelihood of common bile duct obstruction based on the imaging. That in conjunction of the labs after discussion with him it does not felt that MRCP was required emergently. Discussed different dietary things that may trig bc worsening of symptoms and patient has a better understanding now of which foods to avoid and which foods are likely to worsen her symptoms. We will go ahead and discharge her home she has a follow-up tomorrow with Dr. Urbina. If she has worsening or change symptoms she can return. Medical Records I reviewed the patient's medical records. Lab Data I reviewed the patient's lab results. : 02/16/22 14:50 02/16/22 14:50 Labs/Radiology: Radiology Impressions Gallbladder Ultrasound 02/16/22 15:48 IMPRESSION: 1. Mild hepatomegaly with diffuse fatty infiltration. 2. Cholelithiasis. No gallbladder wall thickening or pericholecystic fluid. Large shadowing calculus measures 2.9 cm corresponding to the recent CT 3. Mild dilatation common bile duct measuring 7.9 mm. This could be followed up with MRCP. Laboratory Results WBC 7.7 10^3/uL (4.0-10.0) 02/16/22 14:50 RBC 4.83 10^6/uL (4.1-5.3) 02/16/22 14:50 Hgb 14.3 g/dL (11.5-15.3) 02/16/22 14:50 Hct 43.4 % (37.0-47.0) 02/16/22 14:50 MCV 89.9 fl (81-99) 02/16/22 14:50 MCH 29.6 pg (28.0-34.0) 02/16/22 14:50 MCHC 32.9 g/dL (30.0-36.0) 02/16/22 14:50 RDW 12.5 % (12.1-15.1) 02/16/22 14:50 Plt Count 320 10^3/cmm (130-400) 02/16/22 14:50 MPV 11.3 fL (7.4-10.4) H 02/16/22 14:50 Neut % (Auto) 60.3 % 02/16/22 14:50 Lymph % (Auto) 31.8 % 02/16/22 14:50 [place] % (Auto) 4.9 % 02/16/22 14:50 Eos % (Auto) 2.2 % 02/16/22 14:50 Baso % (Auto) 0.5 % 02/16/22 14:50 Neut # (Auto) 4.65 10^3/uL (1.8-7.7) 02/16/22 14:50 Lymph # (Auto) 2.5 10^3/uL (0.8-4.8) 02/16/22 14:50 [place] # (Auto) 0.4 10^3/uL (0.2-0.9) 02/16/22 14:50 Eos # (Auto) 0.2 10^3/uL (0.0-0.8) 02/16/22 14:50 Baso # (Auto) 0.0 10^3/uL (0.0-0.1) 02/16/22 14:50 Nucleated RBC % (auto) 0 % 02/16/22 14:50 Nucleated RBCs # 0.0 /100WBC 02/16/22 14:50 Sodium 137 mmol/L (136-145) 02/16/22 14:50 Potassium 3.8 mmol/L (3.5-5.1) 02/16/22 14:50 Chloride 100 mmol/L (98-107) 02/16/22 14:50 Carbon Dioxide 27 mmol/L (22-29) 02/16/22 14:50 Anion Gap 13.8 (5-19) 02/16/22 14:50 BUN 6 mg/dL (6-20) 02/16/22 14:50 Creatinine 0.8 mg/dL (0.5-0.9) 02/16/22 14:50 GFR Calculation 81.6 mL/min (90-130) L 02/16/22 14:50 Glucose 102 mg/dL (65-115) 02/16/22 14:50 Calculated Osmolality 282 mOsm/kg (285-295) L 02/16/22 14:50 Calcium 9.0 mg/dL (8.5-10.5) 02/16/22 14:50 Total Bilirubin 0.4 mg/dL (0.15-1.2) 02/16/22 14:50 AST 38 U/L (0-32) H 02/16/22 14:50 ALT 45 U/L (0-33) H 02/16/22 14:50 Alkaline Phosphatase 103 IU/L (35-105) 02/16/22 14:50 Total Protein 6.9 g/dL (6.6-8.7) 02/16/22 14:50 Albumin 4.1 g/dL (3.5-5.2) 02/16/22 14:50 Globulin 2.8 g/dL (1.3-4.6) 02/16/22 14:50 Lipase 20 U/L (13-60) 02/16/22 14:50 HCG, Qual Negative (Negative) 02/16/22 14:50 Urine Color Yellow (Yellow) 02/16/22 16:05 Urine Appearance Clear (CLEAR) 02/16/22 16:05 Urine pH 5 (5-7) 02/16/22 16:05 Ur Specific [place] 1.015 (1.005-1.030) 02/16/22 16:05 Urine Protein Neg (Negative) 02/16/22 16:05 Urine Glucose (UA) Norm (Normal) 02/16/22 16:05 Urine Ketones Negative (Negative) 02/16/22 16:05 Urine Blood Neg (Negative) 02/16/22 16:05 Urine Nitrate Negative (Negative) 02/16/22 16:05 Urine Bilirubin Neg (Negative) 02/16/22 16:05 Urine Urobilinogen Norm mg/dL (Negative) 02/16/22 16:05 Ur Leukocyte Esterase Negative (Negative) 02/16/22 16:05 Discharge Plan Discharge Patient Disposition: Home Clinical Impression: Biliary colic, Cholelithiases Condition: Stable Prescriptions: New hydrocodone-acetaminophen 5-325 mg tablet 1 tab PO Q6H PRN (Reason: pain) Qty: 20 0RF ondansetron HCl 4 mg tablet 4 mg PO Q6H PRN (Reason: nausea and vomiting) Qty: 20 0RF Discontinued acetaminophen-codeine 300-30 mg tablet 1 tab PO Q8H PRN (Reason: pain) Qty: 9 0RF No Action cefdinir 300 mg capsule 300 mg PO BID Florastor 250 mg capsule 250 mg PO DAILY Discharge Orders: Discharge ED (Routine); Ordered 02/16/22 Ordered By: Darryl Hall Discharge Diet: As Directed Patient Instructions: Cholelithiasis, Biliary Colic (ED), Gallstones (ED), Opioid Safety Coding Level of Care Code ED Galley Stripper for Chg Fwd Exam Comprehensive
[2022-02-16 15:30] VITALS: BP 142/80; O2SAT 97
[2022-02-16 15:40] LABS: Alanine Aminotransferase 45 U/L (0-33); Albumin Level 4.1 g/dL (3.5-5.2); Alkaline Phosphatase 103 IU/L (35-105); Anion Gap 13.8 (5-19); Aspartate Amino Transferase 38 U/L (0-32); Blood Urea Nitrogen 6 mg/dL (6-20); Carbon Dioxide 27 mmol/L (22-29); Chloride 100 mmol/L (98-107); Globulin 2.8 g/dL (1.3-4.6); Glomerular Filtration Rate 81.6 mL/min (90-130); Glucose 102 mg/dL (65-115); Lipase 20 U/L (13-60); Osmolality Calculated 282 mOsm/kg (285-295); Potassium 3.8 mmol/L (3.5-5.1); Sodium 137 mmol/L (136-145); Total Bilirubin 0.4 mg/dL (0.15-1.2); Total Protein 6.9 g/dL (6.6-8.7)
--- NOTE | 2022-02-16 15:48 | US_ITS ---
WS: [id number] ULTRASOUND ABDOMEN LIMITED CLINICAL INFORMATION: RUQ pain, cholelithiasis, elevated lfts COMPARISON: CT February 13, 2022 FINDINGS: Liver Size: Mild enlargement Craniocaudal length: 16.3 cm. Echogenicity: Normal. Surface nodularity: None. Mass (size and location): None. Bile ducts Intrahepatic ducts: Normal. Common bile duct diameter: 0.8 cm. Gallbladder Cholelithiasis Gallstones: Present Gallbladder sludge: None. Gallbladder wall thickening: None. Pericholecystic fluid: None. Sonographic Castillo sign: Absent. Pancreas Normal as visualized. Right kidney: Normal. Hydronephrosis: None. Size: 9.4 cm x 4.5 cm x 4.1 cm. Abdominal aorta and IVC Visualized portions are normal. Ascites: None. US/US gall bladder [id number] IMPRESSION: 1. Mild hepatomegaly with diffuse fatty infiltration. 2. Cholelithiasis. No gallbladder wall thickening or pericholecystic fluid. La rge shadowing calculus measures 2.9 cm corresponding to the recent CT 3. Mild dilatation common bile duct measuring 7.9 mm. This could be followed u p with MRCP.
[2022-02-16 16:19] LABS: Add Urine Microscopic? NO; Charge for UA Resulting for Rev
[2022-02-16 16:24] LABS: HCG, Serum Qual Negative (Negative)
[2022-02-16 16:44] LABS: Bilirubin Urine Neg (Negative); Blood Urine Neg (Negative); Glucose Urine UA Norm (Normal); Ketones Urine Negative (Negative); Leukocyte Esterase Urine Negative (Negative); Nitrate Urine Negative (Negative); Protein Urine Neg (Negative); Specific Gravity, Urine 1.015 (1.005-1.030); Urine Appearance Clear (CLEAR); Urine Color Yellow (Yellow); Urobilinogen Urine Norm (Negative); pH Urine 5 (5-7)
[2022-02-16 16:55] VITALS: RESP 14; O2SAT 98
== END 2022-02-16 17:40 | disposition home or self-care (01) ==
PROVIDERS: Physician Assistant; Emergency Provider Family Medicine
DX: K80.20 Calculus of gallbladder without cholecystitis without obstruction (principal)
CPT/HCPCS: 76705; 80053; 81003; 83690; 84703; 85025; 96374; 96375; 96376; 99285; J2270; J2405

== ENCOUNTER 2022-02-24 06:07 | Day surgery (SDC) | payer MEDICAID, SELFPAY ==
[2022-02-23 11:52] VITALS: BMI 66.8
[2022-02-24] VITALS (19 sets, daily range): BP systolic 105–161; BP diastolic 70–97; PULSE 68–99; RESP 13–23; TEMP 36.2–36.6; O2SAT 94–100
[2022-02-24 06:29] LABS: OR HCG Qualitative Urine Negative (Negative)
[2022-02-24] MEDS: sodium chloride 0.9% 1,000 ML 30 ML IV (06:38)
--- NOTE | 2022-02-24 06:54 | P.HP_ITS ---
Same Day Surgery H&P Indication for Procedure/HPI DATE OF PROCEDURE: February 24, 2022 CHIEF COMPLAINT/INDICATIONFOR SURGICAL PROCEDURE: lap latisha PREOP DIAGNOSIS: inguinal hernia PLANNED PROCEDURE: Operation Date: 02/24/22 07:00 Proposed Procedures p lap latisha [id number],K80.20(Not Applicable) - Steven Urbina MD Medications/Allergies* Home Medications Medication Instructions Recorded Confirmed Type Saccharomyces boulardii 250 mg 250 mg PO DAILY 02/16/22 02/24/22 History capsule (Florastor) cefdinir 300 mg capsule 300 mg PO BID 02/16/22 02/24/22 History Allergies/Adverse Reactions Allergy/AdvReac Type Severity Reaction Status Date / Time Iodinated Contrast Media Allergy Mild Rash Verified 02/17/22 09:49 shellfish derived Allergy Mild Rash Verified 02/17/22 09:49 Current Medications: Generic Name Dose Route Start Last Admin Trade Name Freq PRN Reason Stop Dose Admin Sodium Chloride 1,000 mls @ 30 mls/hr 02/24/22 06:15 02/24/22 06:38 Sodium Chloride 0.9% IV 02/25/22 06:14 30 mls/hr .Q24H ROLF Administration Pertinent History/Comorbid Conditions* Medical History (Updated 02/24/22 @ 00:00 by ) Morbid obesity Renal colic Surgical History (Updated 02/19/22 @ 07:50 by Steven Urbina MD) H/O gastric sleeve History of ankle surgery Right ankle History of Social History Smoking and tobacco status: never smoked Pertinent Exam Findings alert, oriented x 3 and regular rate & rhythm Recommendations Surgery/Procedure today Coding Level of Care 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
[2022-02-24] MEDS: ceFAZolin 2,000 MG in sodium chloride 0.9% (plus) 50 ML 100 MG IV (07:00)
--- NOTE | 2022-02-24 07:20 | ANES.PREANE2 ---
Pre-Anesthetic Assessment Height/Weight: Height 1.68 m Weight 187.787 kg Temp Pulse Resp BP Pulse Ox 97.2 F L 99 16 161/92 96 02/24/22 06:26 02/24/22 06:26 02/24/22 06:26 02/24/22 06:26 02/24/22 06:26 Preop Diagnosis: inguinal hernia Operation Date: 02/24/22 07:00 Proposed Procedures p lap latisha [id number],K80.20(Not Applicable) - Steven Urbina MD Familial anesthetic complications: None Was Beta Haylee taken within 24 hours: N/A Was Clonidine taken within 24 hours: N/A Last intake: Intake Last Liquid Date 02/24/22 Last Liquid Time 00:00 Last Solid Date 02/19/22 Last Solid Time 17:00 Social No alcohol and No tobacco Exam alert, oriented x 3, clear to auscultation bilaterally and regular rate & rhythm Airway Submandibular: within normal limits Cervical ROM: within normal limits Mallampati: Class I Dentition: full GI Acute latisha Metabolic Morbid Obesity Anesthetic Plan ASA status: 3 Anesthesia: General Medications/Allergies Home Medications Medication Instructions Recorded Confirmed Last Taken Type Saccharomyces boulardii 250 mg 250 mg PO DAILY 02/16/22 02/24/22 02/22/22 History capsule (Florastor) cefdinir 300 mg capsule 300 mg PO BID 02/16/22 02/24/22 02/23/22 History ondansetron HCl 4 mg tablet 4 mg PO Q6H PRN nausea and 02/16/22 02/23/22 Unknown Rx vomiting #20 tabs hydrocodone 5 mg-acetaminophen 325 1 tab PO Q6H PRN pain #20 tabs 02/24/22 Unknown Rx mg tablet Allergies Allergy/AdvReac Type Severity Reaction Status Date / Time Iodinated Contrast Media Allergy Mild Rash Verified 02/17/22 09:49 shellfish derived Allergy Mild Rash Verified 02/17/22 09:49 Current Medications Generic Name Dose Route Start Last Admin Trade Name Freq PRN Reason Stop Dose Admin Sodium Chloride 1,000 mls @ 30 mls/hr 02/24/22 06:15 02/24/22 06:38 Sodium Chloride 0.9% IV 02/25/22 06:14 30 mls/hr .Q24H ROLF Administration PFSH Anesthesia Medical History (Updated 02/24/22 @ 00:00 by ) Morbid obesity Renal colic Surgical History (Updated 02/24/22 @ 07:08 by Steven Urbina MD) H/O gastric sleeve History of ankle surgery Right ankle History of Status post laparoscopic cholecystectomy (02/24/22) Social History Smoking and tobacco status: never smoked Female Reproductive History Date of last menstrual period: 01/24/22 Data Anesthesia Cardiac Studies: No Data to Display
[2022-02-24] MEDS: fentaNYL 50 mcg/mL INJ 2mL IVP ×2 (08:36→08:45)
[2022-02-24] MEDS: HYDROmorphone 1 mg/mL INJ 1 mL 0.5 MG IVP ×2 (08:56→09:13)
[2022-02-24] MEDS: HYDROcodone-acetaminophen 5-325 mg Tablet 1 TAB PO ×2 (09:44→11:01)
--- NOTE | 2022-02-24 10:05 | P.OP_ITS ---
Operative Report Date of procedure: February 24, 2022 Pre-op diagnosis: Cholelithiasis BMI 66 Hepatomegaly Post-op diagnosis: same Procedure done: Laparoscopic cholecystectomy Specimens removed/disposition: Gallbladder Pathology: none sent Surgeon: Steven Urbina Anesthesia: General Condition: stable Disposition: PACU Procedure: The patient was taken to the operating room and was intubated under general anesthesia. After the antibiotic had been administered, the abdomen was prepped and draped in a sterile manner. Using a #15 blade, a 1 centimeter supr aumbilical longitudinal incision was made and using an open [place] technique the peritoneal cavity was entered. A 10 millimeter port was placed and 15 millimeters of pneumoperitoneum was created. A 10 millimeter, 30 degrees scope was then introduced. Three 5 millimeter ports were placed in the epigastric, midclavicular and the anterior axillary line two fingerbreadths below the costal margin on the right side under the direct visualization. Ratcheted forceps were introduced into the lateral most port and was used to retract the fundus of the gallbladder cephalad and using forceps the infundibulum of the gallbladder was retracted laterally. Using L-hook cautery the peritoneum overlying the Calot's triangle was opened medially and laterally until the cystic duct and the cystic artery were skeletonized. Dissection was carried along the body of the gallbladder and after ensuring critical view of safety, 4 clips applied on the cystic duct and 3 clips applied on the cystic artery and cut leaving, 3 clips on the remaining portion of the duct and 2 clips on the remaining portion of the artery. The rest of the gallbladder was dissected off the liver using L-hook cautery. There was no bleeding or bile leaking noted from the gallbladder fossa and the clips appeared to be in place. An EndoCatch bag was introduced to remove the gallbladder. All the ports were removed under direct visualization and there was no bleeding noted from the port sites. The fascia of the umbilicus was closed using [id number] 0 Vicryl sutures and the subcutaneous tissue was approximated using 3-0 Vicryl sutures. The skin at all four ports were closed using 4-0 Monocryl and Dermabond. A total of 10 millimeters of 0.5% Marcaine was infiltrated around the port sites. The patient was stable th roughout the procedure.
--- NOTE | 2022-02-24 15:47 | ANE.PACU2 ---
Inpatient post-anesthesia follow up: Airway intact: Yes Vital signs: Temperature 98 F Pulse Rate 68 Respiratory Rate 16 Blood Pressure 149/90 Pulse Oximetry 100 Oxygen Delivery Me thod Room Air Oxygen Flow Rate 0 Fraction of Inspir ed Oxygen Hydration adequate: Yes Nausea and vomiting: No Pain level: 3 Mental status: Baseline
== END 2022-02-24 11:06 | disposition home or self-care (01) ==
PROVIDERS: Visit Provider Surgery
PROC: 0FT44ZZ Resection of Gallbladder, Percutaneous Endoscopic Approach (ICD-10-PCS; CPT 47562; principal; 2022-02-24 07:00)
DX: K80.10 Calculus of gallbladder with chronic cholecystitis without obstruction (principal); E66.01 Morbid (severe) obesity due to excess calories; Z68.44 Body mass index [BMI] 60.0-69.9, adult; Z98.84 Bariatric surgery status
CPT/HCPCS: 47562; 84703; 88304; J1100; J1170; J1200; J1885; J2250; J2370; J2405; J2704; J2710; J3010; J3490; J7030

== ENCOUNTER 2022-09-25 19:26 | Emergency (ER) | payer MEDICAID, SELFPAY ==
[2022-09-25 19:32] VITALS: BP 158/105; PULSE 81; RESP 18; TEMP 36.3; O2SAT 100
--- NOTE | 2022-09-25 21:13 | W.ED.BACK ---
Documented by User: ARCADIO Jefferson 09/25/22 21:50 HPI - Back Pain/Injury General: Chief Complaint: Back Pain/Injury Stated Complaint: neck and head pain, cant void Time Seen by Provider: 09/25/22 21:12 History of Present Illness: 37-year-old female comes in today for complaints of mid back pain. Patient reports that she has had a history of urinary tract infection when the back pain started she went through treatment with antibiotics but continues to have back discomfort. Patient denies any chronic medical problems. Patient is morbidly obese. Patient reports that the pain is mainly in her mid back but goes up into her cervical spine. Patient appears well. Patient appears in mild to moderate pain. Associated symptoms: Deny fever(s), nausea or vomiting Review of Systems General: Reports: 10 or more systems reviewed and unremarkable except in HPI and below Const: Denies: fever(s) Card: Denies: chest pain Resp: Denies: dyspnea GI: Denies: nausea or vomiting Musc: Reports: back pain PFSH ED PFSH: Medical History Morbid obesity Renal colic Surgical History H/O gastric sleeve History of ankle surgery Right ankle History of Status post laparoscopic cholecystectomy (02/24/22) Social History Smoking and tobacco status: never smoked Physical Exam Const: COMMON NORMALS: no acute distress HENMT: COMMON NORMALS: normocephalic HEAD & SCALP: normocephalic Neck/C-Spine: CERVICAL SPINE: No Cervical spine tenderness and Yes Paracervical muscle tenderness Resp: COMMON NORMALS: normal respiratory effort and clear to auscultation bilaterally AUSCULTATION: clear to auscultation bilaterally Cardio: COMMON NORMALS: regular rate and regular rhythm RATE: regular rate RHYTHM: regular rhythm Back/Pelvis: THORACIC SPINE/UPPER BACK: Yes paraspinal muscle tenderness and No paraspinal muscle spasm LUMBAR SPINE/LOWER BACK: No lumbar spinal tenderness Extremity: COMMON NORMALS: full ROM Skin: COMMON NORMALS: turgor normal GENERAL SKIN EXAM: turgor normal Course Vital Signs: Vital signs: Vital Signs Temperature 97.3 F L 09/25/22 19:32 Pulse Rate 81 09/25/22 19:32 Respiratory Rate 18 09/25/22 19:32 Blood Pressure 158/105 09/25/22 19:32 Pulse Oximetry 100 09/25/22 19:32 Oxygen Delivery Me thod 09/25/22 19:32 MDM - Back Pain/Injury Medical Decision Making 37-year-old female comes in today for complaints of mid back pain. On exam patient has palpable tenderness in the thoracic paraspinous muscles and cervical neck muscles. No significant pain is noted along the cervical, thoracic, lumbar spine. Patient moves all extremities well. Patient is morbidly obese. Negative leg lift test. Pulses are normal distally. Sensation is normal distally. Differential diagnosis includes intervertebral disc disease, facet arthropathy, thoracic strain. Believe patient probably has musculoskeletal strain. We will go ahead and treat with pain meds and recommend follow-up with primary care for further evaluation and possible treatment with physical therapy. Patient reported understanding agreed to plan. No signs of serious illness or injury is noted at this time. Labs Laboratory Results Urine Color Yellow (Yellow) 09/25/22 20:54 Urine Appearance Clear (CLEAR) 09/25/22 20:54 Urine pH 5 (5-7) 09/25/22 20:54 Ur Specific Otis 1.025 (1.005-1.030) 09/25/22 20:54 Urine Protein Trace (Negative) 09/25/22 20:54 Urine Glucose (UA) Norm (Normal) 09/25/22 20:54 Urine Ketones 1+ (Negative) H 09/25/22 20:54 Urine Blood Neg (Negative) 09/25/22 20:54 Urine Nitrate Negative (Negative) 09/25/22 20:54 Urine Bilirubin 1+ (Negative) H 09/25/22 20:54 Urine Urobilinogen 1 mg/dL (Negative) H 09/25/22 20:54 Ur Leukocyte Esterase Trace (Negative) H 09/25/22 20:54 Urine RBC 0-4 /hpf (0-2) H 09/25/22 20:54 Urine WBC 0-4 /hpf (0-5) H 09/25/22 20:54 Ur Squamous Epith Cells 5-10 /hpf (0-5) H 09/25/22 20:54 Amorphous Sediment Not Reportable 09/25/22 20:54 Urine Bacteria Trace /hpf (NONE) 09/25/22 20:54 Urine Mucus Trace /hpf 09/25/22 20:54 Discharge Plan Discharge Patient Disposition: Home Clinical Impression: Thoracic back pain Qualifiers: Chronicity: acute Back pain laterality: midline Qualified Code(s): M54.6 - Pain in thoracic spine Condition: Stable Prescriptions: New naproxen 500 mg tablet 500 mg PO BID Qty: 20 0RF hydrocodone-acetaminophen 5-325 mg tablet 1 tab PO Q8H PRN (Reason: pain (scale score 7-10)) Qty: 7 0RF No Action cefdinir 300 mg capsule 300 mg PO BID Saccharomyces boulardii [Florastor] 250 mg capsule 250 mg PO DAILY ondansetron HCl 4 mg tablet 4 mg PO Q6H PRN (Reason: nausea and vomiting) Qty: 20 0RF hydrocodone-acetaminophen 5-325 mg tablet 1 tab PO Q6H PRN (Reason: pain) Qty: 20 0RF Colace 100 mg capsule 100 mg PO BID Qty: 30 0RF Discharge Orders: Discharge ED (Routine); Ordered 09/25/22 Ordered By: Yobani Elam Discharge Diet: Usual diet Discharge Activity: Increase activity as tolerated Patient Instructions: Back Pain (ED) Activity Restrictions/Additional Instructions: Home and rest. Activity as tolerated. Drink plenty of water with medication. Use naproxen 500 mg 2 times a day for the next 10 days for pain and inflammation. Use hydrocodone for severe pain. Use ice and heat for further pain relief. Follow-up with primary care in 3 to 5 days for recheck and consideration of other treatment for back pain. Return to ED for new concerns. 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 [employer] Documented by User: Ted Ramos, 09/25/22 23:15 HPI - Back Pain/Injury General: Chief Complaint: Back Pain/Injury Stated Complaint: neck and head pain, cant void Time Seen by Provider: 09/25/22 21:12 [facility] ED PFSH: Medical History Morbid obesity Renal colic Surgical History H/O gastric sleeve History of ankle surgery Right ankle History of Status post laparoscopic cholecystectomy (02/24/22) Social History Smoking and tobacco status: never smoked Course Vital Signs: Vital signs: Vital Signs Temperature 97.3 F L 09/25/22 19:32 Pulse Rate 81 09/25/22 19:32 Respiratory Rate 18 09/25/22 19:32 Blood Pressure 158/105 09/25/22 19:32 Pulse Oximetry 100 09/25/22 19:32 Oxygen Delivery Me thod 09/25/22 19:32 MDM - Back Pain/Injury Medical Decision Making 37-year-old female comes in today for complaints of mid back pain. On exam patient has palpable tenderness in the thoracic paraspinous muscles and cervical neck muscles. No significant pain is noted along the cervical, thoracic, lumbar spine. Patient moves all extremities well. Patient is morbidly obese. Negative leg lift test. Pulses are normal distally. Sensation is normal distally. Differential diagnosis includes intervertebral disc disease, facet arthropathy, thoracic strain. Believe patient probably has musculoskeletal strain. We will go ahead and treat with pain meds and recommend follow-up with primary care for further evaluation and possible treatment with physical therapy. Patient reported understanding agreed to plan. No signs of serious illness or injury is noted at this time. This patient was originally seen by ARCADIO Gunderson.? I agree with his history, evaluation, and treatment. Labs Laboratory Results Urine Color Yellow (Yellow) 09/25/22 20:54 Urine Appearance Clear (CLEAR) 09/25/22 20:54 Urine pH 5 (5-7) 09/25/22 20:54 Ur Specific Otis 1.025 (1.005-1.030) 09/25/22 20:54 Urine Protein Trace (Negative) 09/25/22 20:54 Urine Glucose (UA) Norm (Normal) 09/25/22 20:54 Urine Ketones 1+ (Negative) H 09/25/22 20:54 Urine Blood Neg (Negative) 09/25/22 20:54 Urine Nitrate Negative (Negative) 09/25/22 20:54 Urine Bilirubin 1+ (Negative) H 09/25/22 20:54 Urine Urobilinogen 1 mg/dL (Negative) H 09/25/22 20:54 Ur Leukocyte Esterase Trace (Negative) H 09/25/22 20:54 Urine RBC 0-4 /hpf (0-2) H 09/25/22 20:54 Urine WBC 0-4 /hpf (0-5) H 09/25/22 20:54 Ur Squamous Epith Cells 5-10 /hpf (0-5) H 09/25/22 20:54 Amorphous Sediment Not Reportable 09/25/22 20:54 Urine Bacteria Trace /hpf (NONE) 09/25/22 20:54 Urine Mucus Trace /hpf 09/25/22 20:54 Discharge Plan Discharge Patient Disposition: Home Clinical Impression: Thoracic back pain Qualifiers: Chronicity: acute Back pain laterality: midline Qualified Code(s): M54.6 - Pain in thoracic spine Condition: Stable Prescriptions: New naproxen 500 mg tablet 500 mg PO BID Qty: 20 0RF hydrocodone-acetaminophen 5-325 mg tablet 1 tab PO Q8H PRN (Reason: pain (scale score 7-10)) Qty: 7 0RF No Action cefdinir 300 mg capsule 300 mg PO BID Saccharomyces boulardii [Florastor] 250 mg capsule 250 mg PO DAILY ondansetron HCl 4 mg tablet 4 mg PO Q6H PRN (Reason: nausea and vomiting) Qty: 20 0RF hydrocodone-acetaminophen 5-325 mg tablet 1 tab PO Q6H PRN (Reason: pain) Qty: 20 0RF Colace 100 mg capsule 100 mg PO BID Qty: 30 0RF Discharge Orders: Discharge ED (Routine); Ordered 09/25/22 Ordered By: Yobani Elam Discharge Diet: Usual diet Discharge Activity: Increase activity as tolerated Patient Instructions: Back Pain (ED) Activity Restrictions/Additional Instructions: Home and rest. Activity as tolerated. Drink plenty of water with medication. Use naproxen 500 mg 2 times a day for the next 10 days for pain and inflammation. Use hydrocodone for severe pain. Use ice and heat for further pain relief. Follow-up with primary care in 3 to 5 days for recheck and consideration of other treatment for back pain. Return to ED for new concerns. 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
[2022-09-25] MEDS: ketorolac 30 mg/mL INJ IM (21:39)
[2022-09-25] MEDS: orphenadrine 30 mg/mL Inj 2 mL 60 MG IM (21:39)
[2022-09-25] MEDS: HYDROcodone-acetaminophen 5-325 mg Tablet 1 TAB PO (21:39)
[2022-09-25 22:46] LABS: Bilirubin Urine 1+ (Negative); Blood Urine Neg (Negative); Glucose Urine UA Norm (Normal); Ketones Urine 1+ (Negative); Nitrate Urine Negative (Negative); Protein Urine Trace (Negative); Specific Gravity, Urine 1.025 (1.005-1.030); Urine Appearance Clear (CLEAR); Urine Color Yellow (Yellow); pH Urine 5 (5-7)
[2022-09-25 22:47] LABS: Add Urine Microscopic? YES; Leukocyte Esterase Urine Trace (Negative); Urobilinogen Urine 1 mg/dL (Negative)
[2022-09-25 23:03] LABS: Bacteria Urine TRACE /hpf; Mucus Urine TRACE /hpf; RBC Urine 0-4 /hpf (0-2); WBC Urine 0-4 /hpf (0-5)
[2022-09-25 23:04] LABS: Add Urine Culture? No
[2022-09-25 23:20] VITALS: BP 143/87; PULSE 72; RESP 18; O2SAT 100
== END 2022-09-25 23:21 | disposition home or self-care (01) ==
PROVIDERS: Emergency Provider Nurse Practitioner Family
DX: M54.6 Pain in thoracic spine (principal)
CPT/HCPCS: 81001; 96372; 99284; J1885; J2360

== ENCOUNTER 2023-09-30 13:14 | Emergency (ER) | payer MEDICAID, SELFPAY ==
[2023-09-30 13:36] VITALS: BP 142/85; PULSE 79; RESP 16; TEMP 36.4; O2SAT 100; BMI 67.8
[2023-09-30 13:52] LABS: Basophils % 0.6 %; Eosinophils # 0.2 10^3/uL (0.0-0.8); Eosinophils % 3.3 %; Hematocrit 44.7 % (36-47); Lymphocytes # 2.4 10^3/uL (0.8-4.8); Lymphocytes % 36.4 %; Mean Corpuscular HGB Conc 32.7 g/dL (30-55); Mean Corpuscular Hemoglobin 28.7 pg (27-33); Mean Platelet Volume 11.5 fL (7.4-10.4); Monocytes # 0.4 10^3/uL (0.2-0.9); Monocytes % 5.6 %; Neutrophils # 3.46 10^3/uL (1.8-7.7); Neutrophils % 53.6 %; Nucleated Red Blood Cells % 0 %; Platelet Count 328 10^3/cmm (157-399); Red Blood Count 5.08 10^6/uL (3.85-5.65); Red Cell Distribution Width 13.3 % (12.1-15.1); White Blood Count 6.45 10^3/uL (3.29-11.43)
--- NOTE | 2023-09-30 14:09 | CT_ITS ---
WS: [id number] CT ABDOMEN PELVIS TECHNIQUE: Noncontrast CT of the abdomen and pelvis with coronal and sagittal reformatted images. CLINICAL INFORMATION: flank pain COMPARISON: 2021 DLP: 1351.[address] scans at [facility] use at least one of these dose optimization techniques: automated e xposure control; mA and/or kV adjustment per patient size (includes targeted exams where dose is matc hed to clinical indication); or iterative reconstruction. FINDINGS: Prior gastric sleeve procedure lung bases are well aerated. Noncontrast liver and spleen are normal. Cholecystectomy clips. Adrenal glands are normal. No hydronephrosis in either kidney. Noncontrast quiñones creas is normal. No obstructing renal or ureteral calculi. Tubal ligation clips. Normal caliber noncontrast aorta. [place] fat-containing umbilical hernia. No herniated bowel. A few sigmoid diverticuli. No evidence of acute diverticulitis. Colon is decompress ed. No evidence of acute appendicitis.Disc osteophyte complex T11-T12 with a LEFT paracentral central disc osteophyte protrusion and mild central canal stenosis. Images of the lower lumbar spine degrade d due to beam hardening artifact. 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 IMPRESSION: 1. Interval cholecystectomy. 2. No hydronephrosis in either kidney. No obstructing renal or ureteral calculi. 3. Tubal ligation clips. 4. [place] fat-containing umbilical hernia. No herniated bowel. 5. Normal appendix. No evidence of acute appendicitis. 6. 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
--- NOTE | 2023-09-30 14:12 | ED_ITS ---
HPI - Female Genitourinary 2 General: Chief complaint: Urogenital-Female Stated complaint: side and back pain, trouble urinating Time Seen by Provider: 09/30/23 13:58 Source: patient Mode of arrival: ambulatory Limitations: no limitations History of Present Illness: 38-year-old female states that she is di agnosed with a UTI roughly 2 to 3 weeks ago she states she finished her antibiotics over a week states she is continue to have some dysuria she is having some flank pain as well she has had kidney stones in the past this does not feel similar she denies any vomiting denies any fever denies any abdominal pain Associated symptoms: Deny abdominal pain, headache(s) or nausea Date of Last Menstrual Period: 09/24/23 Review of Systems 2 Const: Denies: fever(s), chills, body aches or change in appetite ENMT: Denies: throat pain or dental pain Card: Denies: chest pain Resp: Denies: dyspnea GI: Denies: abdominal pain, nausea, vomiting or diarrhea : Reports: flank pain and difficulty voiding Musc: Reports: back pain; Denies: neck pain Skin/Breast: Denies: rash Neuro: Denies: headache(s) PFSH ED 2 PFSH: Medical History Renal colic Morbid obesity Surgical History Status post laparoscopic cholecystectomy (02/24/22) History of History of ankle surgery Right ankle H/O gastric sleeve Social History Smoking and tobacco/nicotine status: never used tobacco/nicotine Female Reproductive History: Date of last menstrual period: 09/24/23 Physical Exam 2 Const: COMMON NORMALS: no acute distress, patient oriented x3 and healthy appearing HENMT: COMMON NORMALS: normocephalic and atraumatic HEAD & SCALP: n ormocephalic and atraumatic Neck/C-Spine: COMMON NORMALS: full ROM and supple Chest: COMMONS NORMALS: normal inspection of the chest Resp: COMMON NORMALS: normal respiratory effort Cardio: COMMON NORMALS: regular rate, regular rhythm and No murmurs present (Cardio) RATE: regular rate RHYTHM: regular rhythm GI: COMMON NORMALS: Normal to inspection, nondistended, normoactive bowel sounds present, Soft to palpation, non-tender and no masses PALPATION: Yes Soft to palpation Extremity: COMMON NORMALS: normal to inspection and full ROM Neuro: COMMON NORMALS: patient oriented x3, moves all extremities and no focal motor deficits Psych: COMMON NORMALS: mental status grossly normal, Normal thought process present and cooperative THOUGHT PROCESS: Normal thought process present Skin: COMMON NORMALS: no rashes or lesions noted and no wounds GENERAL SKIN EXAM: no rashes or lesions noted Course 2 Vital Signs: Vital signs: Vital Signs Temperature 97.6 F 09/30/23 13:36 Pulse Rate 79 09/30/23 13:36 Respiratory Rate 16 09/30/23 13:36 Blood Pressure 142/85 09/30/23 13:36 Pulse Oximetry 100 09/30/23 13:36 Oxygen Delivery Me thod Room Air 09/30/23 13:36 MDM - Female Medical Decision Making Patient presents with back pains likely muscle skeletal in nature CT scan showed no kidney stone blood work and urinalysis here are normal no signs of UTI she feels improved here she stable for discharge we will place her on Naprosyn she is follow-up PCP return if worsening. Medical Records I reviewed the patient's medical records. Lab Data I reviewed the patient's lab results. 09/30/23 13:45 09/30/23 13:45 Laboratory Results WBC 6.45 10^3/uL (3.29-11.43) 09/30/23 13:45 RBC 5.08 10^6/uL (3.85-5.65) 09/30/23 13:45 Hgb 14.60 g/dL (11.27-16.99) 09/30/23 13:45 Hct 44.7 % (36-47) 09/30/23 13:45 MCV 88.0 fl (85-98) 09/30/23 13:45 MCH 28.7 pg (27-33) 09/30/23 13:45 MCHC 32.7 g/dL (30-55) 09/30/23 13:45 RDW 13.3 % (12.1-15.1) 09/30/23 13:45 Plt Count 328 10^3/cmm (157-399) 09/30/23 13:45 MPV 11.5 fL (7.4-10.4) H 09/30/23 13:45 Neut % (Auto) 53.6 % 09/30/23 13:45 Lymph % (Auto) 36.4 % 09/30/23 13:45 [place] % (Auto) 5.6 % 09/30/23 13:45 Eos % (Auto) 3.3 % 09/30/23 13:45 Baso % (Auto) 0.6 % 09/30/23 13:45 Neut # (Auto) 3.46 10^3/uL (1.8-7.7) 09/30/23 13:45 Lymph # (Auto) 2.4 10^3/uL (0.8-4.8) 09/30/23 13:45 [place] # (Auto) 0.4 10^3/uL (0.2-0.9) 09/30/23 13:45 Eos # (Auto) 0.2 10^3/uL (0.0-0.8) 09/30/23 13:45 Baso # (Auto) 0.0 10^3/uL (0.0-0.1) 09/30/23 13:45 Nucleated RBC % (auto) 0 % 09/30/23 13:45 Nucleated RBCs # 0.0 /100WBC 09/30/23 13:45 Sodium 139 mmol/L (136-145) 09/30/23 13:45 Potassium 4.2 mmol/L (3.5-5.1) 09/30/23 13:45 Chloride 103 mmol/L (98-107) 09/30/23 13:45 Carbon Dioxide 24 mmol/L (22-29) 09/30/23 13:45 Anion Gap 16.2 (5-19) 09/30/23 13:45 BUN 10 mg/dL (6-20) 09/30/23 13:45 Creatinine 0.8 mg/dL (0.5-0.9) 09/30/23 13:45 GFR Calculation 80.7 mL/min (90-130) L 09/30/23 13:45 Glucose 102 mg/dL (65-115) 09/30/23 13:45 Calculated Osmolality 287 mOsm/kg (285-295) 09/30/23 13:45 Calcium 8.9 mg/dL (8.5-10.5) 09/30/23 13:45 Total Bilirubin 0.4 mg/dL (0.15-1.2) 09/30/23 13:45 AST 20 U/L (0-32) 09/30/23 13:45 ALT 26 U/L (0-33) 09/30/23 13:45 Alkaline Phosphatase 98 U/L (35-105) 09/30/23 13:45 Total Protein 7.0 g/dL (6.6-8.7) 09/30/23 13:45 Albumin 3.7 g/dL (3.5-5.2) 09/30/23 13:45 Globulin 3.3 g/dL (1.3-4.6) 09/30/23 13:45 Lipase 35 U/L (13-60) 09/30/23 13:45 HCG, Qual Negative (Negative) 09/30/23 13:45 Urine Color Yellow (Yellow) 09/30/23 15:28 Urine Appearance Clear (CLEAR) 09/30/23 15:28 Urine pH 7 (5-7) 09/30/23 15:28 Ur Specific [place] 1.010 (1.005-1.030) 09/30/23 15:28 Urine Protein Neg (Negative) 09/30/23 15:28 Urine Glucose (UA) Norm (Normal) 09/30/23 15:28 Urine Ketones Negative (Negative) 09/30/23 15:28 Urine Blood Neg (Negative) 09/30/23 15:28 Urine Nitrate Negative (Negative) 09/30/23 15:28 Urine Bilirubin Neg (Negative) 09/30/23 15:28 Urine Urobilinogen Norm mg/dL (Negative) 09/30/23 15:28 Ur Leukocyte Esterase Trace (Negative) H 09/30/23 15:28 Urine RBC None /hpf (0-2) 09/30/23 15:28 Urine WBC 0-4 /hpf (0-5) H 09/30/23 15:28 Ur Squamous Epith Cells 5-10 /hpf (0-5) H 09/30/23 15:28 Amorphous Sediment Not Reportable 09/30/23 15:28 Urine Bacteria Trace /hpf (NONE) 09/30/23 15:28 All radiology interpretation(s) finalized by discharge Discharge Plan Discharge Patient Disposition: Home Clinical Impression: Back pain Condition: Stable Prescriptions: New Naprosyn 500 mg tablet 500 mg PO BID PRN (Reason: pain) Qty: 20 0RF No Action phentermine 15 mg Capsule 15 mg PO DAILY Rx Instructions: must administer 2 hours after breakfast Topamax 25 mg Tablet See Rx Instructions .ROUTE .COMPLEX Rx Instructions: TAKE 25 MG BY MOUTH DAILY FOR 2 WEEKS, THEN INCREASE TO TWICE DAILY, THEREAFTER. 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
[2023-09-30 14:15] LABS: HCG, Serum Qual Negative (Negative)
[2023-09-30 14:17] LABS: Chloride 103 mmol/L (98-107); Potassium 4.2 mmol/L (3.5-5.1); Sodium 139 mmol/L (136-145)
[2023-09-30 14:37] LABS: Alanine Aminotransferase 26 U/L (0-33); Albumin Level 3.7 g/dL (3.5-5.2); Alkaline Phosphatase 98 U/L (35-105); Anion Gap 16.2 (5-19); Aspartate Amino Transferase 20 U/L (0-32); Blood Urea Nitrogen 10 mg/dL (6-20); Calcium 8.9 mg/dL (8.5-10.5); Carbon Dioxide 24 mmol/L (22-29); Creatinine Clr Calc Pharmacy 169.9072; Globulin 3.3 g/dL (1.3-4.6); Glomerular Filtration Rate 80.7 mL/min (90-130); Glucose 102 mg/dL (65-115); Lipase 35 U/L (13-60); Osmolality Calculated 287 mOsm/kg (285-295); Total Bilirubin 0.4 mg/dL (0.15-1.2)
[2023-09-30 15:44] LABS: Add Urine Microscopic? YES; Bilirubin Urine Neg (Negative); Blood Urine Neg (Negative); Glucose Urine UA Norm (Normal); Ketones Urine Negative (Negative); Leukocyte Esterase Urine Trace (Negative); Nitrate Urine Negative (Negative); Protein Urine Neg (Negative); Urine Appearance Clear (CLEAR); Urine Color Yellow (Yellow); Urobilinogen Urine Norm (Negative); pH Urine 7 (5-7)
[2023-09-30 15:54] LABS: WBC Urine 0-4 /hpf (0-5)
[2023-09-30 15:55] LABS: Add Urine Culture? No; Bacteria Urine TRACE /hpf
[2023-09-30 16:06] VITALS: BP 130/98
== END 2023-09-30 16:09 | disposition home or self-care (01) ==
PROVIDERS: Emergency Provider Emergency Medicine
DX: M54.9 Dorsalgia, unspecified (principal)
CPT/HCPCS: 36415; 74176; 80053; 81001; 83690; 84703; 85025; 99284